=== PATIENT | male | born 1970 | race Caucasian/White ===

== ENCOUNTER → 2022-06-24 | Outpatient (CLI) | payer MEDICAID ==
[2022-06-24 13:46] LABS: Albumin 4.2 g/dL (3.4-5.0); Bilirubin, Direct 0.1 mg/dL (0-0.2)
[2022-06-24 13:47] LABS: Bilirubin, Total 0.5 mg/dL (0.2-1.0); Total Protein 7.2 g/dL (6.4-8.2)
== END | disposition home or self-care (01) ==
LOC: LAB 12:41
PROVIDERS: ATTEND Student in an Organized Health Care Education/Training Program
DX: B35.1 Tinea unguium (principal)
CPT/HCPCS: 36415; 80076

== ENCOUNTER → 2022-08-05 | Outpatient (CLI) | payer MEDICAID ==
[2022-08-05 11:32] LABS: Bilirubin, Direct 0.2 mg/dL (0-0.2)
[2022-08-05 11:34] LABS: Bilirubin, Total 0.7 mg/dL (0.2-1.0)
== END | disposition home or self-care (01) ==
LOC: LAB 10:29
PROVIDERS: ATTEND Student in an Organized Health Care Education/Training Program
DX: B35.1 Tinea unguium (principal)
CPT/HCPCS: 36415; 80076

== ENCOUNTER → 2022-10-26 | Outpatient (CLI) | payer MEDICAID ==
[2022-10-26 14:24] LABS: Albumin 4.2 g/dL (3.4-5.0)
[2022-10-26 14:28] LABS: Bilirubin, Direct 0.1 mg/dL (0-0.2); Bilirubin, Total 0.6 mg/dL (0.2-1.0)
== END | disposition home or self-care (01) ==
LOC: LAB 13:25
PROVIDERS: ATTEND Student in an Organized Health Care Education/Training Program
DX: B35.1 Tinea unguium (principal)
CPT/HCPCS: 36415; 80076